=== PATIENT | female | born 1990 | race Caucasian/White ===

== ENCOUNTER 2016-07-18 14:20 | Inpatient (IN) | payer OTHER ==
[2016-07-18 15:00] LABS: APPEARANCE,URINE SLIGHTLY-CLOUDY; BILIRUBIN,URINE NEGATIVE (NEGATIVE); GLUCOSE, URINE NEGATIVE (NEGATIVE); KETONES,URINE NEGATIVE (NEGATIVE); LEUKOCYTE ESTERASE,URINE TRACE (NEGATIVE); NITRITE,URINE NEGATIVE (NEGATIVE); PROTEIN,URINE NEGATIVE (NEGATIVE); URINE SPECIFIC GRAVITY 1.015; UROBILINOGEN,URINE NEGATIVE mg/dL (<2.0)
[2016-07-18 15:15] LABS: URINE BARBITURATES SCREEN NEGATIVE; URINE METHADONE SCREEN NEGATIVE; URINE OPIATES LOW NEGATIVE; URINE PHENCYCLIDINE SCREEN NEGATIVE
[2016-07-18 15:15] LABS: ABSOLUTE EOSINOPHILS # (AUTO) 0.1 10^3/uL (0.0-0.6); ABSOLUTE LYMPHOCYTES (AUTO) 1.9 10^3/uL (0.5-4.7); ABSOLUTE MONOCYTES (AUTO) 0.4 10^3/uL (0.1-1.4); ABSOLUTE NEUT (AUTO) 6.5 10^3/uL (1.7-8.2); BASOPHILS % (AUTO) 0.3 % (0-2); EOSINOPHILS % (AUTO) 1.2 % (0-6); HEMATOCRIT 31.2 % (36.0-47.0); HEMOGLOBIN 10.8 g/dL (12.0-15.5); HGB HCT DIFFERENCE 1.2; LYMPHOCYTES % (AUTO) 20.8 % (13-45); MEAN CORPUSCULAR HEMOGLOBIN 29.4 pg (27.0-33.4); MEAN CORPUSCULAR HGB CONC 34.5 g/dL (32.0-36.0); MEAN CORPUSCULAR VOLUME 85 fl (80-97); MONOCYTES % (AUTO) 4.6 % (3-13); RED BLOOD COUNT 3.66 10^6/uL (3.72-5.28); RED CELL DISTRIBUTION WIDTH 13.9 % (11.5-14.0); SEGMENTED NEUTROPHILS % (AUTO) 73.1 % (42-78)
[2016-07-18] MEDS ORDERED: BENZOIN/ALOE VERA/STORAX/TOLU TINCTURE 60 ML TP PRN (15:21)
[2016-07-18] MEDS ORDERED: BUPIVACAINE HCL 0.25 % INJ/PF (2.5 MG/1 ML) 30 ML VIAL INFIL ONE (15:21)
[2016-07-18] MEDS ORDERED: EPHEDRINE SULFATE INJ 50 MG/1 ML AMPULE IV PRN (15:21)
[2016-07-18] MEDS ORDERED: MISOPROSTOL 0.2 MG TABLET ONE (15:41)
[2016-07-18] MEDS ORDERED: EPHEDRINE SULFATE INJ 50 MG/1 ML AMPULE ONE (15:41)
[2016-07-18] MEDS ORDERED: LIDOCAINE 1% INJ-PF (10 MG/ML) 30 ML SDV ONE (15:42)
[2016-07-18] MEDS ORDERED: BUPIVACAINE HCL 0.25 % INJ/PF (2.5 MG/1 ML) 30 ML VIAL ONE (15:42)
[2016-07-18] MEDS ORDERED: FENTANYL/BUPIVACAINE/NS/PF 200 MCG/100 ML RTUINJ EPI ONE (15:42)
[2016-07-18] MEDS ORDERED: OXYTOCIN/NORMAL SALINE 20 UNIT/1,000 ML RTUINJ ONE (15:42)
--- NOTE | 2016-07-18 16:00 | L&D Flow Sheet ---
LD Flowsheet Datetime Report Generated by CPN: 07/18/2016 16:00 Datetime: 07/18/2016 15:57 Pulse: 83 (QS system process) SpO2 (%): 100 (QS system process) Datetime: 07/18/2016 15:55 Procedure Verify: Correct Patient Identity; Correct Side and Site are Marked; Accurate Procedure Consent Form; Agreement on Procedure to be Done; Correct Patient Position (Shy Chacon RN) Epidural Positioning: Sitting (Shy Chacon RN) Anesthesia Comments: Dr. Dumas at bedside (Shy Oswaldo, RN) Datetime: 07/18/2016 15:49 IV/Blood Work: New IV Bag Hung (Shy Chacon, RN) Datetime: 07/18/2016 15:45 Anesthesia Comments: Dr Dumas notified of pt request for epidural. (Shy Chacon, RN) Datetime: 07/18/2016 15:34 Temperature (F): 98.1 (Shy Chacon RN) Temperature (C): 36.7 (QS system process) Datetime: 07/18/2016 15:24 Frequency (min): 2-3 (Shy Chacon RN) Pain Scale: 4 (Shy Chacon RN) Pain Presence: Intermittent (Shy Chacon RN) Pain Type: Contraction (Shy Chacon RN) Pain Location: Abdomen; Back (Shy Chacon RN) Pain Goal: 1 (Shy Chacon RN) Pain Relief Measures: Comfort Measures (Shy Chacon RN) Pain Coping: Breathing Through Contractions (Shy Chacon RN) Pain Assessment Comments: pt requesting epidural (Shy Chacon RN) Membrane Status: Intact (Shy Chacon RN) Vaginal Bleeding: None (Shy Chacon RN) Level of Consciousness: Fully Conscious (Shy Chacon RN) DTR's/Clonus: DTRs 2+; No Clonus (Shy Chacon RN) Headache: Denies (Shy Chacon RN) Breath Sounds, Left: Clear and Equal (Shy Chacon RN) Breath Sounds, Right: Clear and Equal (Shy Chacon RN) Nausea/Vomiting: Present (Shy Chacon RN) RUQ Epigastric Pain: Denies (Shy Chacon, MARTIN) Patient Position/Activity: High Fowlers (Shy Chacon, MARTIN) Instructional Method: Verbal; Patient Instructed; Verbalized Understanding (Shy Chacon RN) Plan of Care: Plan of Care Discussed (Shy hCacon RN) Unit Routine: [place] to Room; Call Day; Bed; Monitoring (Shy Chacon RN) Datetime: 07/18/2016 15:07 Monitor Interventions for UA: [place] Adjusted (Shy Chacon, RN) Datetime: 07/18/2016 15:02 IV/Blood Work: IV Started; IV Bolus Started (Shy Chacon RN) Patient Care Comments: 18g in right forearm (Shy Chacon, MARTIN) Datetime: 07/18/2016 14:52 Communication Comments: call placed to Dr Grant to notify of pt complaint of ctx, SVE 5/80/0. Orders received to admit and pt may have epidural for pain prn. (Shy Baidy, RN) Datetime: 07/18/2016 14:43 NBP Sys/Shalini/Mean (mmHg): 141 (QS system process) : 76 (QS system process) : 102 (QS system process) Pulse: 86 (QS system process) Datetime: 07/18/2016 14:41 Dilatation (cm): 5.0 (Shy Chacon RN) Effacement (%): 80 (Shy Chacon RN) Station: 0 (Shy Chacon RN) Exam by: Sunni Rabago RN (Shy Chacon RN)
[2016-07-18] MEDS ORDERED: LIDOCAINE 2% INJ-PF (20 MG/ML) 10 ML AMPUL ONE (16:47)
[2016-07-18] MEDS: FENTANYL/BUPIVACAINE/NS/PF 100 ML EPI PRN ×3 (17:27→19:23)
[2016-07-18] MEDS: RINGERS SOLUTION,LACTATED 1,000 ML IV PRN ×3 (17:29→17:32)
--- NOTE | 2016-07-18 18:00 | L&D Flow Sheet ---
LD Flowsheet Datetime Report Generated by CPN: 07/18/2016 18:00 Datetime: 07/18/2016 17:55 NBP Sys/Shalini/Mean (mmHg): 143 (QS system process) : 65 (QS system process) : 94 (QS system process) Pulse: 94 (QS system process) Datetime: 07/18/2016 17:45 Dilatation (cm): 10.0 (Shy Chacon RN) Effacement (%): 100 (Shy Chacon RN) Station: 2 (Shy Chacon RN) Exam by: Linnea Chacon RN (Shy Chacon RN) Datetime: 07/18/2016 17:39 NBP Sys/Shalini/Mean (mmHg): 136 (QS system process) : 85 (QS system process) : 100 (QS system process) Pulse: 104 (QS system process) Datetime: 07/18/2016 17:30 Monitor Mode: External; Palpation (Shy Chacon RN) Frequency (min): 2-4 (Shy Chacon RN) Quality: Moderate to Strong (Shy Chacon RN) Duration (sec): 70-90 (Shy Chacon RN) Duration Criteria: Less than Two 120 Second Contractions (Shy Chacon RN) Pattern: Normal: <= 5 Contractions in 10 Minutes (Shy Chacon RN) Resting Tone (Palpate): Relaxed (Shy Chacon RN) Monitor Mode: External US (Shy Chacon RN) FHR Baseline Rate : 130 (Shy Chacon RN) Variability: Moderate 6-25 bpm (Shy Baidy, RN) Accelerations: 15X15 (Shy Baidy, RN) Decelerations: None (Shy Baidy, RN) Datetime: 07/18/2016 17:25 NBP Sys/Shalini/Mean (mmHg): 134 (QS system process) : 78 (QS system process) : 101 (QS system process) Pulse: 99 (QS system process) Datetime: 07/18/2016 17:19 IV/Blood Work: New IV Bag Hung (Shy Baidy, RN) Patient Position/Activity: Tailors (Shy Baidy, RN) Datetime: 07/18/2016 17:17 Dilatation (cm): 7.5 (Shy hCacon, MARTIN) Effacement (%): 80 (Shy Chacon RN) Station: 0 (Shy Chacon, RN) Exam by: Dr Grant (Shy Chacon, MARTIN) Membrane Status: Ruptured (Shy Chacon, RN) Membranes Rupture Method: Artificial (Shy Chacon, RN) Amniotic Fluid Color: Clear (Shy Chacon, RN) Amniotic Fluid Amount: Small (Shy Chacon, RN) Amniotic Fluid Odor: Normal (Shy Chacon, RN) Datetime: 07/18/2016 17:15 Monitor Mode: External; Palpation (Shy Chacon RN) Frequency (min): 3-5 (Shy Chacon RN) Quality: Moderate to Strong (Shy Chacon RN) Duration (sec): 60-90 (Shy Chacon RN) Duration Criteria: Less than Two 120 Second Contractions (Shy Chacon RN) Pattern: Normal: <= 5 Contractions in 10 Minutes (Shy Chacon RN) Resting Tone (Palpate): Relaxed (Shy Chacon, RN) Monitor Mode: External US (Shy Chacon, MARTIN) FHR Baseline Rate : 130 (Shy Chacon RN) Variability: Moderate 6-25 bpm (Shy Chacon, RN) Accelerations: None (Shy Chacon, RN) Decelerations: Late (Shy Chacon, RN) Patient Position/Activity: Right Tilt (Shy Chacon, RN) Datetime: 07/18/2016 17:09 NBP Sys/Shalini/Mean (mmHg): 136 (QS system process) : 74 (QS system process) : 98 (QS system process) Pulse: 96 (QS system process) Datetime: 07/18/2016 17:00 Monitor Mode: External; Palpation (Shy Chacon, RN) Frequency (min): 2-4 (Shy Chacon, RN) Quality: Moderate (Shy Baidy, RN) Duration (sec): 60-90 (Shy Oswaldo, RN) Duration Criteria: Less than Two 120 Second Contractions (Shy Chacon, RN) Pattern: Normal: <= 5 Contractions in 10 Minutes (Shy Baidy, RN) Resting Tone (Palpate): Relaxed (Shy Chacon, RN) Monitor Mode: External US (Shy Chacon, RN) FHR Baseline Rate : 120 (Shy Chacon, RN) Variability: Moderate 6-25 bpm (Shy Baidy, RN) Accelerations: 15X15 (Shy Baidy, RN) Decelerations: Prolonged (Shy Baidy, RN) Datetime: 07/18/2016 16:57 NBP Sys/Shalini/Mean (mmHg): 125 (QS system process) : 72 (QS system process) : 92 (QS system process) Pulse: 89 (QS system process) Datetime: 07/18/2016 16:55 NBP Sys/Shalini/Mean (mmHg): 125 (QS system process) : 73 (QS system process) : 95 (QS system process) Pulse: 80 (QS system process) Anesthesia Comments: Dr Dumas at bedside, bolus given. (Shy Chacon RN) Datetime: 07/18/2016 16:53 NBP Sys/Shalini/Mean (mmHg): 123 (QS system process) : 61 (QS system process) : 88 (QS system process) Pulse: 109 (QS system process) Datetime: 07/18/2016 16:51 Patient Care Comments: repositioned side to side (Shy Baidy, RN) Datetime: 07/18/2016 16:46 Communication Comments: Dr Piter notified of pt complaint of no pain relief. Dr Piter on his way to unit to give bolus. (Shy Baidy, RN) Datetime: 07/18/2016 16:45 Monitor Mode: External; Palpation (Shy Baidy, RN) Frequency (min): 2-3 (Shy Baidy, RN) Quality: Moderate (Shy Baidy, RN) Duration (sec): 60-90 (Shy Baidy, RN) Duration Criteria: Less than Two 120 Second Contractions (Shy Baidy, RN) Pattern: Normal: <= 5 Contractions in 10 Minutes (Shy Baidy, RN) Resting Tone (Palpate): Relaxed (Hsy Baidy, RN) Monitor Mode: External US (Shy Baidy, RN) FHR Baseline Rate : 120 (Shy Baidy, RN) Variability: Moderate 6-25 bpm (Shy Baidy, RN) Accelerations: Prolonged (Shy Baidy, RN) Decelerations: None (Shy Baidy, RN) Datetime: 07/18/2016 16:39 NBP Sys/Shalini/Mean (mmHg): 131 (QS system process) : 58 (QS system process) : 84 (QS system process) Pulse: 104 (QS system process) Datetime: 07/18/2016 16:33 Communication Comments: Dr Grant notified of pt SVE 5/80/0 and epidural now placed. Pt still uncomfortable. (Shy Chacon, RN) Datetime: 07/18/2016 16:30 Monitor Mode: External; Palpation (Shy Baidy, RN) Frequency (min): 2-3 (Shy Baidy, RN) Quality: Moderate (Shy Baidy, RN) Duration (sec): 50-90 (Shy Baidy, RN) Duration Criteria: Less than Two 120 Second Contractions (Shy Baidy, RN) Pattern: Normal: <= 5 Contractions in 10 Minutes (Shy Baidy, RN) Resting Tone (Palpate): Relaxed (Shy Baidy, RN) Monitor Mode: External US (Shy Baidy, RN) FHR Baseline Rate : 120 (Shy Baidy, RN) Variability: Moderate 6-25 bpm (Shy Baidy, RN) Accelerations: Prolonged (Shy Baidy, RN) Decelerations: None (Shy Baidy, RN) Datetime: 07/18/2016 16:26 Anesthesia Level Check: T11 (Shy Baidy, RN) Datetime: 07/18/2016 16:25 Monitor Interventions for UA: [place] Adjusted (Shy Baidy, RN) Datetime: 07/18/2016 16:23 IV/Blood Work: IV Infusing per Order (Shy Baidy, RN) Patient Care Comments: 125ml/hr (Shy Claridy, RN) Datetime: 07/18/2016 16:22 Monitor Interventions for UA: [place] Adjusted (Shy Baidy, RN) I/O Interventions: [place] Cath Inserted (Shy Chacon RN) Patient Care Comments: 14f clear yellow urine (Shy Chacon RN) Datetime: 07/18/2016 16:21 NBP Sys/Shalini/Mean (mmHg): 125 (QS system process) : 55 (QS system process) : 78 (QS system process) Pulse: 75 (QS system process) Datetime: 07/18/2016 16:20 Dilatation (cm): 5.0 (Shy Chacon RN) Effacement (%): 80 (Shy Chacon, MARTIN) Station: 0 (Shy Chacon RN) Exam by: Linnea Chacon RN (Shy Chacon RN) Datetime: 07/18/2016 16:15 Monitor Mode: External; Palpation (Shy Baidy, RN) Frequency (min): 2-3 (Shy Baidy, RN) Quality: Moderate (Shy Baidy, RN) Duration (sec): 60-80 (Shy Baidy, RN) Duration Criteria: Less than Two 120 Second Contractions (Shy Baidy, RN) Pattern: Normal: <= 5 Contractions in 10 Minutes (Shy Baidy, RN) Resting Tone (Palpate): Relaxed (Shy Baidy, RN) Monitor Mode: External US (Shy Baidy, RN) FHR Baseline Rate : 125 (Shy Baidy, RN) Variability: Moderate 6-25 bpm (Shy Baidy, RN) Accelerations: Prolonged (Shy Baidy, RN) Decelerations: None (Shy Baidy, RN) Datetime: 07/18/2016 16:12 Pain Scale: 3 (Shy Baidy, RN) Pain Presence: Intermittent (Shy Baidy, RN) Pain Type: Contraction; Pressure (Shy Baidy, RN) Pain Location: Abdomen; Back; Perineum (Shy Baidy, RN) Datetime: 07/18/2016 16:10 NBP Sys/Shalini/Mean (mmHg): 134 (QS system process) : 63 (QS system process) : 90 (QS system process) Pulse: 64 (QS system process) Datetime: 07/18/2016 16:09 NBP Sys/Shalini/Mean (mmHg): 129 (QS system process) : 59 (QS system process) : 85 (QS system process) Pulse: 83 (QS system process) Epidural Procedure Other: Pump Started (Shy Baidy, RN) Datetime: 07/18/2016 16:08 NBP Sys/Shalini/Mean (mmHg): 125 (QS system process) : 65 (QS system process) : 89 (QS system process) Pulse: 85 (QS system process) Datetime: 07/18/2016 16:07 NBP Sys/Shalini/Mean (mmHg): 126 (QS system process) : 68 (QS system process) : 90 (QS system process) Pulse: 97 (QS system process) Pulse: 91 (QS system process) SpO2 (%): 100 (QS system process) Datetime: 07/18/2016 16:06 NBP Sys/Shalini/Mean (mmHg): 128 (QS system process) : 66 (QS system process) : 90 (QS system process) Pulse: 89 (QS system process) Datetime: 07/18/2016 16:05 NBP Sys/Shalini/Mean (mmHg): 128 (QS system process) : 70 (QS system process) : 93 (QS system process) Pulse: 94 (QS system process) Datetime: 07/18/2016 16:04 NBP Sys/Shalini/Mean (mmHg): 135 (QS system process) : 74 (QS system process) : 100 (QS system process) Pulse: 85 (QS system process) Datetime: 07/18/2016 16:03 NBP Sys/Shalini/Mean (mmHg): 135 (QS system process) : 81 (QS system process) : 100 (QS system process) Pulse: 94 (QS system process) Epidural Procedure: Cath Placed (Shy Chacon RN) Datetime: 07/18/2016 16:02 Pulse: 79 (QS system process) SpO2 (%): 97 (QS system process) Epidural Procedure: Test Dose (Shy Chacon RN) Datetime: 07/18/2016 16:00 Monitor Mode: External; Palpation (Shy Chacon RN) Frequency (min): 2-3 (Shy Chacon RN) Quality: Moderate (Shy Chacon RN) Duration (sec): 60-90 (Shy Chacon RN) Duration Criteria: Less than Two 120 Second Contractions (Shy Chacon RN) Pattern: Normal: <= 5 Contractions in 10 Minutes (Shy Chacon RN) Resting Tone (Palpate): Relaxed (Shy Chacon RN) Monitor Mode: External US (Shy Chacon RN) FHR Baseline Rate : 125 (Shy Chacon RN) Variability: Moderate 6-25 bpm (Shy Chacon RN) Accelerations: 15X15 (Shy Chacon RN) Decelerations: None (Shy Chacon RN)
[2016-07-18] MEDS ORDERED: IBUPROFEN 800 MG TABLET ONE (19:27)
[2016-07-18] MEDS ORDERED: DIPH/PERTUSS(ACELL)/TETANUS VAC/PF 0.5 ML SYR (>=10YO) IM PRN (19:36)
[2016-07-18] MEDS ORDERED: DIBUCAINE 1% OINTMENT 28 GM TP PRN (19:36)
[2016-07-18] MEDS ORDERED: ZOLPIDEM TARTRATE 5 MG TABLET PO PRN (19:36)
[2016-07-18] MEDS ORDERED: BENZOCAINE/MENTHOL AEROSOL SPRAY 56 ML TOP PRN (19:36)
[2016-07-18] MEDS ORDERED: ACETAMINOPHEN WITH CODEINE #3 TABLET PO PRN (19:36)
[2016-07-18] MEDS ORDERED: MEASLES,MUMPS&RUBELLA VACC/PF 0.5 ML VIAL SUBCUT PRN (19:36)
[2016-07-18] MEDS ORDERED: OXYTOCIN/NORMAL SALINE 1,000 ML IV PRN (19:36)
--- NOTE | 2016-07-18 20:00 | L&D Flow Sheet ---
LD Flowsheet Datetime Report Generated by CPN: 07/18/2016 20:00 Datetime: 07/18/2016 19:53 NBP Sys/Shalini/Mean (mmHg): 125 (QS system process) : 72 (QS system process) : 93 (QS system process) Pulse: 71 (QS system process) Datetime: 07/18/2016 19:38 NBP Sys/Shalini/Mean (mmHg): 126 (QS system process) : 70 (QS system process) : 93 (QS system process) Pulse: 68 (QS system process) Datetime: 07/18/2016 19:23 NBP Sys/Shalini/Mean (mmHg): 126 (QS system process) : 68 (QS system process) : 93 (QS system process) Pulse: 68 (QS system process) Respirations: 14 (Klarissa Clevelandgerann, RN) Datetime: 07/18/2016 19:15 Stage of : Recovery (Klarissa Haile RN) Temperature (F): 97.7 (Klarissa Haile RN) Temperature (C): 36.5 (QS system process) Temperature Route: Oral (Klarissa Haile, RN) Pain Scale: 2 (Klarissa Haile RN) Pain Presence: Constant (Klarissa Haile RN) Pain Type: Cramping; Pressure (Klarissa Haile, RN) Pain Location: Perineum (Klarissa Guthriegerwood, RN) Datetime: 07/18/2016 19:08 NBP Sys/Shalini/Mean (mmHg): 122 (QS system process) : 63 (QS system process) : 88 (QS system process) Pulse: 78 (QS system process) Datetime: 07/18/2016 18:53 NBP Sys/Shalini/Mean (mmHg): 129 (QS system process) : 67 (QS system process) : 92 (QS system process) Pulse: 73 (QS system process) Datetime: 07/18/2016 18:39 NBP Sys/Shalini/Mean (mmHg): 131 (QS system process) : 74 (QS system process) : 91 (QS system process) Pulse: 83 (QS system process) Datetime: 07/18/2016 18:24 NBP Sys/Shalini/Mean (mmHg): 131 (QS system process) : 58 (QS system process) : 82 (QS system process) Pulse: 95 (QS system process) Datetime: 07/18/2016 18:13 Medication Comments: pitocin bolus started (Shy Baidy, RN) Datetime: 07/18/2016 18:11 Stage of : Recovery (Shy Chacon, RN) Respirations: 16 (Shy Chacon, RN) Pain Scale: 0 (Shy Chacon RN) Pain Presence: None/Denies (Shy Chacon RN) Pain Type: N/A (Shy Chacon RN) Datetime: 07/18/2016 18:00 Monitor Mode: External; Palpation (Shy Chacon RN) Frequency (min): 3 (Shy Chacon RN) Quality: Moderate to Strong (Shy Chacon RN) Duration (sec): 70-90 (Shy Chacon RN) Duration Criteria: Less than Two 120 Second Contractions (Shy Chacon RN) Pattern: Normal: <= 5 Contractions in 10 Minutes (Shy Chacon RN) Resting Tone (Palpate): Relaxed (Shy Chacon RN) Monitor Mode: External US (Shy Chacon RN) FHR Baseline Rate : 120 (Shy Chacon RN) Variability: Moderate 6-25 bpm (Shy Chacon RN) Accelerations: 15X15 (Shy Chacon RN) Decelerations: Early; Late (Shy Chacon RN)
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
[2016-07-18] MEDS: ACETAMINOPHEN WITH CODEINE #3 TABLET PO PRN (22:05)
[2016-07-19] MEDS: IBUPROFEN 800 MG TABLET PO SCH ×4 (00:03→21:01)
[2016-07-19] MEDS ORDERED: KETOROLAC TROMETHAMINE INJ/PF 30 MG/1 ML SDV ONE (05:16)
[2016-07-19] MEDS: ACETAMINOPHEN WITH CODEINE #3 TABLET PO PRN ×4 (05:32→21:43)
[2016-07-19] MEDS ORDERED: KETOROLAC TROMETHAMINE INJ/PF 30 MG/1 ML SDV IV ONE (05:45)
[2016-07-19] MEDS ORDERED: OXYCODONE-ACETAMINOPHEN 5-325 MG TABLET PO ONE (06:30)
--- NOTE | 2016-07-19 07:00 | L&D Flow Sheet ---
LD Flowsheet Datetime Report Generated by CPN: 07/19/2016 07:00 Datetime: 07/18/2016 19:53 NBP Sys/Shalini/Mean (mmHg): 125 (QS system process) : 72 (QS system process) : 93 (QS system process) Pulse: 71 (QS system process) Datetime: 07/18/2016 19:38 NBP Sys/Shalini/Mean (mmHg): 126 (QS system process) : 70 (QS system process) : 93 (QS system process) Pulse: 68 (QS system process) Datetime: 07/18/2016 19:23 NBP Sys/Shalini/Mean (mmHg): 126 (QS system process) : 68 (QS system process) : 93 (QS system process) Pulse: 68 (QS system process) Respirations: 14 (Klarissa Clevelandgerann, RN) Datetime: 07/18/2016 19:15 Stage of : Recovery (Klarissa Haile RN) Temperature (F): 97.7 (Klarissa Haile RN) Temperature (C): 36.5 (QS system process) Temperature Route: Oral (Klarissa Haile, RN) Pain Scale: 2 (Klarissa Haile RN) Pain Presence: Constant (Klarissa Haile RN) Pain Type: Cramping; Pressure (Klarissa Haile, RN) Pain Location: Perineum (Klarissa Guthriegerwood, RN) Datetime: 07/18/2016 19:08 NBP Sys/Shalini/Mean (mmHg): 122 (QS system process) : 63 (QS system process) : 88 (QS system process) Pulse: 78 (QS system process)
[2016-07-19 07:43] LABS: HEMATOCRIT 31.5 % (36.0-47.0); HEMOGLOBIN 10.8 g/dL (12.0-15.5); HGB HCT DIFFERENCE 0.9; MEAN CORPUSCULAR HEMOGLOBIN 29.6 pg (27.0-33.4); MEAN CORPUSCULAR HGB CONC 34.3 g/dL (32.0-36.0); MEAN CORPUSCULAR VOLUME 86 fl (80-97); RED BLOOD COUNT 3.65 10^6/uL (3.72-5.28); WHITE BLOOD COUNT 9.5 10^3/uL (4.0-10.5)
--- NOTE | 2016-07-19 09:01 | PDOC PROGRESS REPORT ---
Subjective-OB Subjective: Post Delivery Day: 25 year old. Complaining of severe pain about 2x/hr, especially with and going to bathroom. Physical Exam (OB) Vital Signs: Temp Pulse Resp BP Pulse Ox 97.6 F 69 16 125/68 100 07/19/16 07:31 07/19/16 07:31 07/19/16 07:31 07/19/16 07:31 07/19/16 07:31 Intake & Output 07/18/16 07/19/16 07/20/16 06:59 06:59 06:59 Weight 63.503 kg - PIH/Pre-Eclampsia Headache: Absent Epigastric Pain: No Visual Changes: No - Lochia Lochia Amount: Small 10-25 ml Lochia Color: Rubra/Red - Abdomen Description: Soft, Round Hernia Present: No Bowel Sounds: Normoactive Flatus Presence: Present Stool: No Fundal Description: Firm, Midline Fundal Height: u/u - u/2 Objective-Diagnostic Laboratory: 07/19/16 06:38 07/18/16 07/18/16 07/18/16 14:32 15:02 15:02 WBC 9.0 RBC 3.66 L Hgb 10.8 L Hct 31.2 L MCV 85 MCH 29.4 MCHC 34.5 RDW 13.9 Plt Count 172 Seg Neutrophils % 73.1 Lymphocytes % 20.8 Monocytes % 4.6 Eosinophils % 1.2 Basophils % 0.3 Absolute Neutrophils 6.5 Absolute Lymphocytes 1.9 Absolute Monocytes 0.4 Absolute Eosinophils 0.1 Absolute Basophils 0.0 Urine Color YELLOW Urine Appearance SLIGHTLY-CLOUDY Urine pH 7.0 Ur Specific Wake 1.015 Urine Protein NEGATIVE Urine Glucose (UA) NEGATIVE Urine Ketones NEGATIVE Urine Blood NEGATIVE Urine Nitrite NEGATIVE Ur Leukocyte Esterase TRACE H Blood Type AB POSITIVE Antibody Screen NEGATIVE 07/19/16 06:38 WBC 9.5 RBC 3.65 L Hgb 10.8 L Hct 31.5 L MCV 86 MCH 29.6 MCHC 34.3 RDW 14.0 Plt Count 173 Seg Neutrophils % Lymphocytes % Monocytes % Eosinophils % Basophils % Absolute Neutrophils Absolute Lymphocytes Absolute Monocytes Absolute Eosinophils Absolute Basophils Urine Color Urine Appearance Urine pH Ur Specific Wake Urine Protein Urine Glucose (UA) Urine Ketones Urine Blood Urine Nitrite Ur Leukocyte Esterase Blood Type Antibody Screen
--- NOTE | 2016-07-19 09:35 | Delivery Summary ---
Del Sum A-C Datetime Report Generated by CPN: 07/19/2016 09:34 ADMISSION DATA Chief Complaint: Uterine Contractions Indication for Induction: Not Applicable Admission Impression: Term, Intrauterine ; Active Labor; Intact Membranes Admit Provider Comments: TErm labor. gbs neg. epidural. plan arom when comfortable DELIVERY PERSONNEL Delivery Doctor:: Jeni Grant MD Labor and Delivery Nurse:: Shy Chacon RNtimber treatment plant operator Nurse:: Jennifer Boykin RN Coal Chemist/CITY SOLICITOR: Nathalie Theron, FIXED WING AIRCRAFT CREW CHIEF MATERNAL INFORMATION Delivery Anesthesia: Epidural Medications After Delivery: Pitocin Bolus-Please Comment Meds After Delivery Comment: pitocin 20 units in 1000mL NSS Estimated Blood Loss (ml): 250 Maternal Complications: None (Annotations: Data stored by ETIENNE on behalf of user) Provider Comments: over intact perineum, no lacs. live female infant ap 9/9. spontaneous intact placenta 3vc. no complications LABOR SUMMARY EDC: 07/28/2016 00:00 No. Babies in Womb: 1 Labor Anesthesia: Epidural LABOR INFORMATION Reason for Induction: Not Applicable Onset of Labor: 07/18/2016 05:00 Complete Dilatation: 07/18/2016 17:45 Oxytocin: N/A Group B Beta Strep: negative Antibiotics # of Doses: 0 Steroids Given: None Reason Steroids Not Administered: Not Applicable MEMBRANES Membranes Rupture Method: Artificial Rupture of Membranes: 07/18/2016 17:17 Length of Rupture (hr): 0.83 Amniotic Fluid Color: Clear Amniotic Fluid Amount: Small Amniotic Fluid Odor: Normal STAGES OF LABOR Stage 1 hr: 12 Stage 1 min: 45 Stage 2 hr: 0 Stage 2 min: 22 Stage 3 hr: 0 Stage 3 min: 4 Total Time in Labor hr: 13 Total Time in Labor min: 11 VAGINAL DELIVERY Episiotomy: None Laceration Extension: N/A Laceration Type: None Laceration Repair: Not Applicable Sponge Count Correct: Yes Sharps Count Correct: Yes CSECTION DELIVERY Primary Indication: N/A Secondary Indication: N/A CSection Incidence: N/A Labor: N/A Elective: N/A CSection Incision: N/A BABY A INFORMATION Infant Delivery Date/Time: 07/18/2016 18:07 Method of Delivery: Vaginal Born in Route : No : N/A Forceps: N/A Vacuum Extraction: N/A Shoulder Dystocia : No PRESENTATION/POSITION BABY A Presentation: Cephalic Cephalic Presentation: Vertex Vertex Position: Right Occipital Anterior Breech Presentation: N/A PLACENTA INFORMATION BABY A Placenta Delivery Time : 07/18/2016 18:11 Placenta Method of Delivery: Spontaneous Placenta Status: Delivered SCORES BABY A Heart Rate 1 min: >100 bpm Resp Effort 1 min: Good Cry Reflex Irritability 1 min: Cough or Sneeze or Pulls Away Muscle Tone 1 min: Active Motion Color 1 min: Body [place], Extremities Blue Resuscitation Effort 1 min: Tactile Stimulation SCORE 1 MIN: 9 Heart Rate 5 min: >100 bpm Resp Effort 5 min: Good Cry Reflex Irritability 5 min: Cough or Sneeze or Pulls Away Muscle Tone 5 min: Active Motion Color 5 min: Body [place], Extremities Blue Resuscitation Effort 5 min: Tactile Stimulation SCORE 5 MIN: 9 INFORMATION BABY A Gestational Age at Delivery: 38.4 Gestational Status: Early Term- 37- 38.6 Weeks Outcome : Liveborn Infant Condition : Stable Infant Sex: Female IDENTIFICATION BABY A Infant Verification Date/Time: 07/18/2016 18:29 ID Band Number: [id number] Mother's Name Verified: Yes Infant RN Verifying Infant: H Lucretia RN Additional Verifying Personnel: B Baidy RN WEIGHT/LENGTH BABY A Infant Birthweight (gm): 2697 Weight (lb): 5 Weight (oz): 15 Infant Length (in): 19.50 Length (cm): 49.53 CORD INFORMATION BABY A No. Cord Vessels: 3 Nuchal Cord : N/A Cord Blood Taken: Yes-For Storage (Mom's Blood type +) Suction: Mouth ASSESSMENT BABY A Complications: None Physical Findings at Delivery: Within Normal Limits Infant Respirations: Appears Normal Skin to Skin: Yes Reconstructive Surgeon/ALS Called : No Care By: Christopher Boykin RN Transferred To: Remains with Mother BABY B INFORMATION : N/A SIGNATURES Signature: with User ID: [email or web address]
[2016-07-19] MEDS: DOCUSATE SODIUM 100 MG CAPSULE PO SCH ×2 (09:45→17:13)
[2016-07-19] MEDS: FERROUS SULFATE 325 MG TABLET PO SCH ×2 (09:45→17:13)
[2016-07-19] MEDS: SENNOSIDES/DOCUSATE 8.6-50 MG 1 EACH TABLET PO SCH (09:45)
[2016-07-19] MEDS: PRENATAL VITAMIN W-O CA NO5/FE FUMARATE/FA CAPSULE PO SCH (09:45)
[2016-07-19] MEDS ORDERED: BUSPIRONE HCL PO SCH (10:00)
[2016-07-19 11:02] LABS: ALANINE AMINOTRANSFERASE 38 U/L (9-52); ALBUMIN 3.2 g/dL (3.5-5.0); ALKALINE PHOSPHATASE 114 U/L (38-126); ANION GAP 7 (5-19); ASPARTATE AMINO TRANSFERASE 41 U/L (14-36); BILIRUBIN,TOTAL 0.3 mg/dL (0.2-1.3); BLOOD UREA NITROGEN 9 mg/dL (7-20); CALCIUM 9.1 mg/dL (8.4-10.2); CARBON DIOXIDE 21 mmol/L (22-30); CHLORIDE 107 mmol/L (98-107); CREATININE RESULT 0.83 mg/dL (0.52-1.25); GLUCOSE 86 mg/dL (75-110); POTASSIUM 4.8 mmol/L (3.6-5.0); SODIUM 135.3 mmol/L (137-145); TOTAL PROTEIN 5.9 g/dL (6.3-8.2)
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
--- NOTE | 2016-07-19 18:15 | L&D Care Plan ---
LD CARE PLANS Datetime Report Generated by CPN: 07/19/2016 18:15 Datetime: 07/18/2016 14:46 State: Risk For (Bertha Rabago RN) Related To: Labor and Delivery Process; Treatment and Procedures (Bertha Rabago RN) Goal(s): Patients Pain will be Assessed and Managed; Patient will Verbalize Adequate Relief of Pain or the Ability to [place] with Current Pain (Bertha Rabago RN) Interventions: Assess Pain Severity on Scale of 0 (None) to 5 (Severe); Assess Type, Location and Intensity of Pain Each Time Client Reports Discomfort and Notify Provider if Unusal Pain Develops; Encourage Proper Breathing and Relaxation Techniques; Offer Alternatives Such as Repositioning, Calm Environment, Massages, Diversional Activities, Ice Pack, Splinting, and Ambulation; Administer Analgesics as Ordered; Assist with Epidural Placement as Appropriate; Evaluate Therapeutic Effectiveness of Medication and Treatments (Bertha Rabago RN) Outcome: Patient will Report Absence or Relief of Pain Consistent with Established Pain Goal (Bertha Rabago RN) Status: Ongoing (Bertha Rabago RN) Outcome: Patient will have a Decrease in Signs and Symptoms of Discomfort (Bertha Rabago RN) Status: Ongoing (Bertha Rabago RN) Outcome: Pain will be Controlled During Procedures (Bertha Rabago RN) Status: Ongoing (Bertha Rabago RN) State: Risk For (Bertha Rabago RN) Related To: Labor and Delivery Process; Medical Interventions (Bertha Rabago RN) Goal(s): Patient will have Decreased Anxiety and be able to Function at Acceptable Levels (Bertha Rabago RN) Interventions: Assess Verbal and Nonverbal Behavioral Indicators of Anxiety; Assist Patient to Identify and Verbalize Symptoms of Anxiety; Identify and Demonstrate Techniques to Control Anxiety; Assist Patient with Coping Mechanisms to Manage Anxiety; Provide Theraputic Touch for the Patient; Explain to Patient, Using a Calm Reassuring Approach and Nonmedical Terms, All Activities, Procedures, and Concerns; Instruct Patient and Family about Post Discharge Care, Limitations, Symptoms to Report and Resources Available (Bertha Rabago RN) Outcome: Patient will Identify, Verbalize and Demonstrate Techniques to Control Anxiety (Bertha Rabago RN) Status: Ongoing (Bertha Rabago RN) Outcome: Patient's Posture, Facial Expressions, Gestures and Activity Level will Reflect Decreased Anxiety (Bertha Rabago RN) Status: Ongoing (Bertha Rabago RN) Outcome: Patient will Verbalize a Sense of Control and/or Acceptance of the Situation (Bertha Rabago RN) Status: Ongoing (Bertha Rabago RN) Outcome: Patient will Identify and Utilize Support Person (Bertha Rabago RN) Status: Ongoing (Bertha Rabago RN) State: Risk For (Bertha Rabago RN) Related To: Labor and Delivery Process; Treatment and Procedures (Bertha Rabago RN) Goal(s): Patient will Accurately Verbalize Understanding of Plan of Care and Treatment; Patient and Family will Accurately Verbalize Understanding of the Disease Process (Bertha Rabago RN) Interventions: Assess Motivation and Willingness of Patient/Family to Learn; Assess Preferred Learning Mode: One to One Instruction, Reading, Videos, Group Discussion or Demonstration; Assess Barriers to Learning: Pain, Emotional State, Language Barrier, Cognitive Impairment, Visual or Hearing Deficits; Assess Patient and Family Knowledge of Disease Process, Medications and Treatment; Discuss Therapy and/or Treatment Options, Describe Rationale Behind Management, Therapy and Treatment Recommendations; Instruct Patient and Family on Signs and Symptoms to Report; Instruct Patient and Family on Medication Effects and Side Effects; Provide Appropriate and Timely Education Using Multiple Techniques; Provide Patient and Family with Support Group Information and Resources; Give Clear and Thorough Explanations and Demonstrations (Bertha Rabago RN) Outcome: Patient and Family will Verbalize Understanding of Condition, Treatment and Signs and Symptoms to Report (Bertha Rabago RN) Status: Ongoing (Bertha Rabago RN) Outcome: Patient will Identify Perceived Learning Needs and Express Motivation to Learn (Bertha Rabago RN) Status: Ongoing (Bertha Rabago RN) Outcome: Patient will Verbalize Understanding of Desired Content, and/or Performs Desired Skill Prior to Discharge (Bertha Rabago RN) Status: Ongoing (Bertha Rabago RN) State: Risk For (Bertha Rabago RN) Related To: Invasive Procedures (Bertha Rabago RN) Goal(s): The Patient will be Free of Infection, Vital Signs Stable and Lab Work within Normal Parameters (Bertha Rabago RN) Interventions: Instruct and Reinforce Proper Handwashing, Hygiene, and Care Techniques to Patient and Family; Monitor Vital Signs; Monitor Patient for the Following Signs of Infection: Fever, Abdominal Tenderness, Unusual Discharge; Monitor Aminiotic Fluid, Urine and Lochia for Color and Odor; Observe Wounds, Incisions and Invasive Line Sites for Redness, Drainage and Edema; Assess IV Sites per Hospital Policy; Monitor Lab and Test Results and Notify Provider of Abnormal Findings; Assess Nutritional Status and Promote Good Nutrition (Bertha Rabago RN) Outcome: Patient will Remain Free of Infection (Bertha Rabago RN) Status: Ongoing (Bertha Rabago RN) Outcome: Infection will be Recognized Early to Allow for Prompt Treatment (Bertha Rabago RN) Status: Ongoing (Bertha Rabago RN) Outcome: Patient will have Vital Signs Within Expected Range (Bertha Rabago RN) Status: Ongoing (Bertha Rabago RN) Datetime: 07/18/2016 14:44 State: Risk For (Bertha Rabago RN) Related To: Labor and Delivery Process; Treatment and Procedures (Bertha Rabago RN) Goal(s): Patients Pain will be Assessed and Managed; Patient will Verbalize Adequate Relief of Pain or the Ability to [place] with Current Pain (Bertha Rabago RN) Interventions: Assess Pain Severity on Scale of 0 (None) to 5 (Severe); Assess Type, Location and Intensity of Pain Each Time Client Reports Discomfort and Notify Provider if Unusal Pain Develops; Encourage Proper Breathing and Relaxation Techniques; Offer Alternatives Such as Repositioning, Calm Environment, Massages, Diversional Activities, Ice Pack, Splinting, and Ambulation; Administer Analgesics as Ordered; Assist with Epidural Placement as Appropriate; Evaluate Therapeutic Effectiveness of Medication and Treatments (Bertha Rabago RN) Outcome: Patient will Report Absence or Relief of Pain Consistent with Established Pain Goal (Bertha Rabago RN) Status: Ongoing (Bertha Rabago RN) Outcome: Patient will have a Decrease in Signs and Symptoms of Discomfort (Bertha Rabago RN) Status: Ongoing (Bertha Rabago RN) Outcome: Pain will be Controlled During Procedures (Bertha Rabago RN) Status: Ongoing (Bertha Rabago RN) State: Risk For (Bertha Rabago RN) Related To: Labor and Delivery Process; Medical Interventions (Bertha Rabago RN) Goal(s): Patient will have Decreased Anxiety and be able to Function at Acceptable Levels (Bertha Rabago RN) Interventions: Assess Verbal and Nonverbal Behavioral Indicators of Anxiety; Assist Patient to Identify and Verbalize Symptoms of Anxiety; Identify and Demonstrate Techniques to Control Anxiety; Assist Patient with Coping Mechanisms to Manage Anxiety; Provide Theraputic Touch for the Patient; Explain to Patient, Using a Calm Reassuring Approach and Nonmedical Terms, All Activities, Procedures, and Concerns; Instruct Patient and Family about Post Discharge Care, Limitations, Symptoms to Report and Resources Available (Bertha Rabago RN) Outcome: Patient will Identify, Verbalize and Demonstrate Techniques to Control Anxiety (Bertha Rabago RN) Status: Ongoing (Bertha Rabago RN) Outcome: Patient's Posture, Facial Expressions, Gestures and Activity Level will Reflect Decreased Anxiety (Bertha Rabago RN) Status: Ongoing (Bertha Rabago RN) Outcome: Patient will Verbalize a Sense of Control and/or Acceptance of the Situation (Bertha Rabago RN) Status: Ongoing (Bertha Rabago RN) Outcome: Patient will Identify and Utilize Support Person (Bertha Rabago RN) Status: Ongoing (Bertha Rabago RN) State: Risk For (Bertha Rabago RN) Related To: Labor and Delivery Process; Treatment and Procedures (Bertha Rabago RN) Goal(s): Patient will Accurately Verbalize Understanding of Plan of Care and Treatment; Patient and Family will Accurately Verbalize Understanding of the Disease Process (Bertha Rabago RN) Interventions: Assess Motivation and Willingness of Patient/Family to Learn; Assess Preferred Learning Mode: One to One Instruction, Reading, Videos, Group Discussion or Demonstration; Assess Barriers to Learning: Pain, Emotional State, Language Barrier, Cognitive Impairment, Visual or Hearing Deficits; Assess Patient and Family Knowledge of Disease Process, Medications and Treatment; Discuss Therapy and/or Treatment Options, Describe Rationale Behind Management, Therapy and Treatment Recommendations; Instruct Patient and Family on Signs and Symptoms to Report; Instruct Patient and Family on Medication Effects and Side Effects; Provide Appropriate and Timely Education Using Multiple Techniques; Provide Patient and Family with Support Group Information and Resources; Give Clear and Thorough Explanations and Demonstrations (Bertha Rabago RN) Outcome: Patient and Family will Verbalize Understanding of Condition, Treatment and Signs and Symptoms to Report (Bertha Rabago RN) Status: Ongoing (Bertha Rabago RN) Outcome: Patient will Identify Perceived Learning Needs and Express Motivation to Learn (Bertha Rabago RN) Status: Ongoing (Bertha Rabago RN) Outcome: Patient will Verbalize Understanding of Desired Content, and/or Performs Desired Skill Prior to Discharge (Bertha Rabago RN) Status: Ongoing (Bertha Rabago RN) State: Risk For (Bertha Rabago RN) Related To: Invasive Procedures (Bertha Rabago RN) Goal(s): The Patient will be Free of Infection, Vital Signs Stable and Lab Work within Normal Parameters (Bertha Rabago RN) Interventions: Instruct and Reinforce Proper Handwashing, Hygiene, and Care Techniques to Patient and Family; Monitor Vital Signs; Monitor Patient for the Following Signs of Infection: Fever, Abdominal Tenderness, Unusual Discharge; Monitor Aminiotic Fluid, Urine and Lochia for Color and Odor; Observe Wounds, Incisions and Invasive Line Sites for Redness, Drainage and Edema; Assess IV Sites per Hospital Policy; Monitor Lab and Test Results and Notify Provider of Abnormal Findings; Assess Nutritional Status and Promote Good Nutrition (Bertha Rabago RN) Outcome: Patient will Remain Free of Infection (Bertha Rabago RN) Status: Ongoing (Bertha Rabago RN) Outcome: Infection will be Recognized Early to Allow for Prompt Treatment (Bertha Rabago RN) Status: Ongoing (Bertha Rabago RN) Outcome: Patient will have Vital Signs Within Expected Range (Bertha Rabago RN) Status: Ongoing (Bertha Rabago RN)
[2016-07-20] MEDS: IBUPROFEN 800 MG TABLET PO SCH (05:09)
[2016-07-20] MEDS: ACETAMINOPHEN WITH CODEINE #3 TABLET PO PRN (05:13)
--- NOTE | 2016-07-20 06:00 | L&D Current Admission ---
Current Admit Datetime Report Generated by CPN: 07/20/2016 06:00 ADMISSION INFORMATION Current Admit Date/Time: 07/18/2016 15:00 (07/18/2016 15:04:Shy Chacon RN) Reason for Admission: Onset of Labor (07/18/2016 15:04:Shy Chacon RN) Chief Complaint: Contractions (07/18/2016 15:24:Shy Chacon RN) EGA per Dates: 38.4 (07/18/2016 15:04:QS system process) Method of Arrival: Wheelchair (07/18/2016 15:04:Shy Chacon RN) Admitted From: Home (07/18/2016 15:04:Shy Chacon RN) Reason for Induction: Not Applicable (07/18/2016 15:04:Shy Chacon RN) Records Available: Yes (07/18/2016 15:04:Shy Chacon RN) General Admission Information: Reviewed; Updated; Confirmed (07/18/2016 15:04:Shy Chacon RN) General Admission Reviewed By: Linnea Chacon RN (07/18/2016 15:04:Shy Chacon RN) BELONGINGS/ADVANCED DIRECTIVES Valuables/Personal Effects: None (07/18/2016 15:04:Shy Chacon RN) Other Belongings: see valuable consent (07/18/2016 15:04:Shy Chacon RN) Disposition of Belongings: Kept with Patient (07/18/2016 15:04:Shy Chacon RN) Advance Direct for Healthcare: No, and Wants No Information (07/18/2016 15:04:Shy Chacon RN) Durable Power of Electric Organ Checker: No (07/18/2016 15:04:Shy Chacon RN) Living Will: No (07/18/2016 15:04:Shy Chacon RN) Organ Donor: Yes (07/18/2016 15:04:Shy Chacon RN) Pt Rights Information Given: Yes (07/18/2016 15:04:Shy Chacon RN) Pt Understands Pt Rights: Yes (07/18/2016 15:04:Shy Chacon RN) LEARNING ASSESSMENT Knowledge Level: Understands L_D Process (07/18/2016 15:04:Shy Chacon RN) Barriers to Learning: None (07/18/2016 15:04:Shy Chacon RN) Learning Readiness: Motivated (07/18/2016 15:04:Shy Chacon RN) Learns Best By: 1 to 1 Instruction; Reading; Demonstration (07/18/2016 15:04:Shy Chacon RN) Learning Needs: Labor and Delivery Process; Pain Management; Symptoms to Report (07/18/2016 15:04:Shy Chacon RN) NUTRITIONAL/FUNCTIONAL SCREENING Problem with Appetite >5 Days: No (07/18/2016 15:04:Shy Chacon RN) Chew/Swallow Difficulties: No (07/18/2016 15:04:Shy Chacon RN) Inappropriate Wt Gain/Loss: No (07/18/2016 15:04:Shy Chacon RN) Presence Skin Breakdown/Ulcer: No (07/18/2016 15:04:Shy Chacon RN) Special Diet: No (07/18/2016 15:04:Shy Chacon RN) Pt Requests Convex Grinder Operator Visit: No (07/18/2016 15:04:Shy Chacon RN) Hx of Any of the Following?: N/A (07/18/2016 15:04:Shy Chacon RN) New Diagnosis of: N/A (07/18/2016 15:04:Shy Chacon RN) Requires Assist w/Ambulation: No (07/18/2016 15:04:Shy Chacon RN) Uses Assist Device to Ambulate: No (07/18/2016 15:04:Shy Chacon RN) Pt Requires Help w/ADL's: No (07/18/2016 15:04:Shy Chacon RN)
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
[2016-07-20 08:31] VITALS: BP 121/76
[2016-07-20] MEDS: FERROUS SULFATE 325 MG TABLET PO SCH (10:23)
[2016-07-20] MEDS: DOCUSATE SODIUM 100 MG CAPSULE PO SCH (10:24)
[2016-07-20] MEDS: PRENATAL VITAMIN W-O CA NO5/FE FUMARATE/FA CAPSULE PO SCH (10:24)
[2016-07-20] MEDS: SENNOSIDES/DOCUSATE 8.6-50 MG 1 EACH TABLET PO SCH (10:24)
[2016-07-20 14:36] LABS: APPEARANCE,URINE CLEAR; BILIRUBIN,URINE NEGATIVE (NEGATIVE); GLUCOSE, URINE NEGATIVE (NEGATIVE); KETONES,URINE NEGATIVE (NEGATIVE); LEUKOCYTE ESTERASE,URINE NEGATIVE (NEGATIVE); NITRITE,URINE NEGATIVE (NEGATIVE); PROTEIN,URINE NEGATIVE (NEGATIVE); URINE SPECIFIC GRAVITY 1.008; UROBILINOGEN,URINE NEGATIVE mg/dL (<2.0)
--- NOTE | 2016-07-20 14:54 | XCELERA REPORT ---
[address] [address] Lower Extremity Venous Evaluation Name: PRITI ALEXIS Age: 25 yrs Gender: Female : 1990 Patient Status: Inpatient Patient Location: 2S\S\217\S\A Study Date: 07/20/2016 11:38 AM Procedure: Color flow and duplex imaging of the veins of the right lower extremity as well as the left Common Femoral vein. Reason For Study: Right calf pain and mild foot swelling Ordering Physician: BERNY LEE CNM Performed By: Arvin Al Right Sided Venous Evaluation Normal vessel filling wall to wall, compression and augmentation as well as Colour flow down to the infrageniculate veins. Left Sided Venous Evaluation The left common femoral vein is fully compressible. Spontaneous and phasic flow is present in the left common femoral vein. Interpretation Summary No duplex evidence of DVT or obstruction in the right lower extremity nor in the left Common Femoral vein. : BERNY LEE CNM > Robin Trujillo
== END 2016-07-20 14:18 | disposition home or self-care (01) | DRG 775 ==
LOC: LC 14:20 → LR 14:47 → 2S 21:24
PROVIDERS: ADMIT Obstetrics & Gynecology; ATTEND Obstetrics & Gynecology
PROC: 10E0XZZ Delivery of Products of Conception, External Approach (ICD-10-PCS; principal; 2016-07-18)
PROC: 10907ZC Drainage of Amniotic Fluid, Therapeutic from Products of Conception, Via Natural or Artificial Opening (ICD-10-PCS; 2016-07-18)
PROC: 4A1HXCZ Monitoring of Products of Conception, Cardiac Rate, External Approach (ICD-10-PCS; 2016-07-18)
DX: O99.02 Anemia complicating childbirth (principal); D64.9 Anemia, unspecified; O99.344 Other mental disorders complicating childbirth; F43.10 Post-traumatic stress disorder, unspecified; F32.9 Major depressive disorder, single episode, unspecified; Z91.040 Latex allergy status; Z91.011 Allergy to milk products; Z91.018 Allergy to other foods; Z87.891 Personal history of nicotine dependence; Z3A.38 38 weeks gestation of pregnancy; Z37.0 Single live birth
CPT/HCPCS: 36415; 80053; 80307; 81001; 81005; 85025; 85027; 86592; 86850; 86900; 86901; 87086; 93971; 94760; J1885; J2590; J3490